=== PATIENT | female | born 1965 | race Two or more races ===

== ENCOUNTER 2018-12-07 19:43 | Emergency (ER) | payer OTHER ==
[2018-12-07] MEDS ORDERED: ASPIRIN 81 MG CHEWABLE TABLETS PO ONE (20:06)
--- NOTE | 2018-12-07 20:06 | PDOC ---
Rapid Medical Evaluation Chief Complaint: Chest Pain Time Seen by Provider: 12/07/18 20:05 Medical Evaluation: 12/07/18 20:05 I have performed a brief in-person evaluation of this patient. The patient presents with a chief complaint of: chest pain since yesterday Pertinent physical exam findings:NAD I have ordered the following:Cardiac work up The patient will proceed to the ED for further evaluation. Discharge Disposition - Diagnosis Chest pain - Referrals - Patient Instructions - Post Discharge Activity
[2018-12-07 20:09] VITALS: BMI 24.6
[2018-12-07] MEDS ORDERED: ASPIRIN 81 MG CHEWABLE TABLETS ONE (20:26)
[2018-12-07 20:48] LABS: BASO % 0.2 % (0-2.0); EOS % 0.5 % (0-4.5); HEMATOCRIT 40.3 % (32.4-45.2); HEMOGLOBIN 14.3 GM/dL (10.7-15.3); MCH 31.8 pg (25.7-33.7); MCHC 35.6 g/dl (32.0-36.0); MEAN CELL VOLUME 89.5 fl (80-96); MEAN PLT VOLUME 8.5 fl (7.5-11.1); MONO % 8.5 % (3.8-10.2); NEUT % 80.8 % (42.8-82.8); PLATELET COUNT 188 K/MM3 (134-434); RDW 12.8 % (11.6-15.6); WHITE BLOOD COUNT 5.5 K/mm3 (4.0-10.0)
[2018-12-07 21:02] LABS: INR 1.19 (0.83-1.09); PROTHROMBIN TIME (PATIENT) 14.1 SEC (9.7-13.0)
[2018-12-07] MEDS ORDERED: ACETAMINOPHEN 1000 MG/100 ML VIAL (NON FORMULARY) IVPB ONE (21:20)
[2018-12-07] MEDS ORDERED: ACETAMINOPHEN INJECTION 100 ML IVPB ONE (21:36)
--- NOTE | 2018-12-07 21:55 | PDOC ---
History of Present Illness - General Chief Complaint: Chest Pain Stated Complaint: CHEST PAINS Time Seen by Provider: 12/07/18 20:05 History Source: Patient Exam Limitations: Language Barrier - History of Present Illness Initial Comments: 12/07/18 21:50 Pt is a 53yo F with no significant PMH presenting to ED with complaints of chest pain, cough, and congestion x 1 day. Pt states that yesterday morning she stared to have a sharp chest pain on the left side under the breast and then later that evening she stared to develop cough productive of yellow spututm and congestion. She had similar symptoms earlier last month but the chest pain developed after the cough. She was placed on a Zpack. Pt endorses chills and headache. Denies fever, changes in vision, sore throat, earache, changes in vision, abdominal pain, n/v/d, numbness/tingling, sick contacts, recent travel. PMD: [place] PMH: see hpi PSH: hernia repair Meds: none Allergies: nkda Social: denies Past History - Past Medical History Allergies/Adverse Reactions: Allergies Allergy/AdvReac Type Severity Reaction Status Date / Time No Known Allergies Allergy Verified 12/07/18 20:09 Home Medications: Ambulatory Orders Albuterol Sulfate Inhaler - [Ventolin HFA Inhaler -] 1 - 2 inh PO Q4H #1 inhaler 12/07/18 Benzonatate [Tessalon Pearls -] 100 mg PO TID #21 capsule 12/07/18 COPD: No - Suicide/Smoking/Psychosocial Hx Smoking History: Never smoked Have you smoked in the past 12 months: No Information on smoking cessation initiated: No Hx Alcohol Use: No Drug/Substance Use Hx: No Review of Systems - Review of Systems Constitutional: No: Chills, Fever HEENTM: Yes: See HPI Respiratory: Yes: See HPI Cardiac (ROS): Yes: See HPI ABD/GI: No: Symptoms Reported : No: Symptoms Reported Musculoskeletal: No: Symptoms Reported Integumentary: No: Symptoms Reported Neurological: Yes: See HPI, Headache *Physical Exam - Vital Signs Last Vital Signs Temp Pulse Resp BP Pulse Ox 99.3 F 100 H 17 118/58 L 100 12/07/18 20:04 12/07/18 20:04 12/07/18 20:04 12/07/18 20:04 12/07/18 20:04 - Physical Exam General Appearance: Yes: Nourished, Appropriately Dressed. No: Apparent Distress HEENT: positive: EOMI, JAMAAL Neck: positive: Trachea midline, Supple. negative: Lymphadenopathy (R), Lymphadenopathy (L) Respiratory/Chest: positive: Lungs Clear, Normal Breath Sounds. negative: Chest Tender, Crackles, Rhonchi, Wheezing, Plerual Rub Cardiovascular: positive: Regular Rhythm, Regular Rate, S1, S2. negative: Murmur Vascular Pulses: Carotid (R): 2+, Carotid (L): 2+, Dorsalis-Pedis (R): 2+, Doralis-Pedis (L): 2+ Gastrointestinal/Abdominal: positive: Normal Bowel Sounds, Soft. negative: Tender Musculoskeletal: negative: CVA Tenderness Extremity: positive: Normal Capillary Refill. 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 intact, Fully Oriented, Alert, Normal Mood/ Affect, Normal Response, Motor Strength 5/5 Moderate Sedation - Procedure Monitoring Vital Signs: Procedure Monitoring Vital Signs Temperature 99.3 F 12/07/18 20:04 Pulse Rate 100 H 12/07/18 20:04 Respiratory Rate 17 12/07/18 20:04 Blood Pressure 118/58 L 12/07/18 20:04 O2 Sat by Pulse Oximetry (%) 100 12/07/18 20:04 ED Treatment Course - LABORATORY CBC & Chemistry Diagram: 12/07/18 20:21 12/07/18 21:19 - ADDITIONAL ORDERS Additional order review: Laboratory Results 12/07/18 12/07/18 20:21 20:21 PT with INR 14.10 H INR 1.19 H Sodium Cancelled Potassium Cancelled Chloride Cancelled Carbon Dioxide Cancelled Anion Gap Cancelled BUN Cancelled Creatinine Cancelled Creat Clearance w eGFR Cancelled Random Glucose Cancelled Calcium Cancelled Magnesium Cancelled Total Bilirubin Cancelled AST Cancelled ALT Cancelled Alkaline Phosphatase Cancelled Creatine Kinase Cancelled Troponin I Cancelled Total Protein Cancelled Albumin Cancelled 12/07/18 20:21 RBC 4.50 MCV 89.5 MCHC 35.6 RDW 12.8 MPV 8.5 Neutrophils % 80.8 Lymphocytes % 10.0 Monocytes % 8.5 Eosinophils % 0.5 Basophils % 0.2 - Medications Given in the ED: ED Medications Discontinued Medications Generic Name Dose Route Start Last Admin Trade Name Mireille PRN Reason Stop Dose Admin Acetaminophen 1,000 mg 12/07/18 21:20 12/07/18 21:40 Ofirmev Injection - IVPB 12/07/18 21:21 1,000 mg ONCE ONE Administration Aspirin 162 mg 12/07/18 20:06 12/07/18 20:33 Asa - PO 12/07/18 20:07 162 mg ONCE ONE Administration Medical Decision Making - Medical Decision Making 12/07/18 21:53 Pt is a 53yo F with no significant PMH presenting to ED with complaints of chest pain, cough, and congestion x 1 day. Pt states that yesterday morning she stared to have a sharp chest pain on the left side under the breast and then later that evening she stared to develop cough productive of yellow spututm and congestion. She had similar symptoms earlier last month but the chest pain developed after the cough. She was placed on a Zpack. Pt endorses chills and headache. Denies fever, changes in vision, sore throat, earache, changes in vision, abdominal pain, n/v/d, numbness/tingling, sick contacts, recent travel. Vitals: 100hr PE: lungs CTA, normal heart sounds, no friction rub ddx includes but not limited to pna, ptx, carditis, acs, dissection most likely viral uri. labs,ekg, cxr asa, tylenol reassess labs wnl. ekg normal cxr normal pt feelin better, can be dc home with pmd f/u. given return precautions *DC/Admit/Observation/Transfer Diagnosis at time of Disposition: Cough, Viral URI Chest pain Qualifiers: Chest pain type: unspecified Qualified Code(s): R07.9 - Chest pain, unspecified - Discharge Dispostion Disposition: HOME Condition at time of disposition: Good Decision to Admit order: No - Prescriptions Prescriptions: Albuterol Sulfate Inhaler - [Ventolin HFA Inhaler -] 1 - 2 inh PO Q4H #1 inhaler Benzonatate [Tessalon Pearls -] 100 mg PO TID #21 capsule - Referrals Referrals: Huyen Cortes MD [Primary Care Provider] - - Patient Instructions Printed Discharge Instructions: DI for Viral Upper Respiratory Infection -- Adult Additional Instructions: You were seen in the emergency room today because you were having chest pain with cough and congestion. The xray does not show pneumonia and the blood work is normal. You most likely have a viral infection. Keep yourself well hydrated. You can take Tylenol or ibuprofen for pain as needed. Two prescriptions were sent to your pharmacy. One is for cough and one is an inhaler to help you breathe. Please take as directed. Make sure you make an appointment with your doctor next week. Come back to the emergency room if pain gets worse, you have a hard time breathing, you develop fevers, cough gets worse or if any new concerning symptom develops. Thank you Print Language: CITIZEN OF [place] - Post Discharge Activity Forms/Work/School Notes: Back to Work
[2018-12-07 22:07] LABS: ALK PHOS 101 U/L (45-117); ANION GAP 9 MMOL/L (8-16); BILIRUBIN,TOTAL 0.4 mg/dL (0.2-1); BLOOD UREA NITROGEN 11 mg/dL (7-18); CALCIUM 8.2 mg/dL (8.5-10.1); CHLORIDE 105 mmol/L (98-107); CO2 23 mmol/L (21-32); CREATININE 0.5 mg/dL (0.55-1.3); GLUCOSE,RANDOM 89 mg/dL (74-106); POTASSIUM 3.4 mmol/L (3.5-5.1); SGOT/AST 37 U/L (15-37); SGPT/ALT 51 U/L (13-61); SODIUM 137 mmol/L (136-145); TOT PROT 7.2 g/dl (6.4-8.2)
--- NOTE | 2018-12-07 22:16 | PDOC ---
Attending Attestation - HPI HPI: 12/07/18 22:19 The patient is a 53 year old female, with no significant PMH, who presents to the emergency department with 1 day of productive cough with yellow sputum and congestion. The patient also endorses chest pain secondary to coughing, chills and headache. The patient states she had similar symptoms last month where chest pain developed after a cough. The patient reports she was placed on Zithromax antibiotics at that time with relief of her symptoms. The patient denies palpitations, shortness of breath and dizziness. Denies fever, nausea, vomit, diarrhea and constipation. Denies dysuria, frequency, urgency and hematuria. Allergies: NKA Documentation prepared by Prosper Cervantes, acting as medical pathologist for Chun Lee MD. - Physicial Exam PE: 12/07/18 22:19 GENERAL: Awake, alert, and fully oriented, in no acute distress HEAD: No signs of trauma EYES: PERRLA, EOMI, sclera anicteric, conjunctiva clear ENT: Auricles normal inspection, hearing grossly normal, nares patent. Moist mucosa NECK: Normal ROM, supple, no JVD. LUNGS: Breath sounds equal, clear to auscultation bilaterally. No wheezes, and no crackles HEART: Regular rate and rhythm, normal S1 and S2, no murmurs, rubs or gallops ABDOMEN: Soft, nontender. No guarding, no rebound. No masses EXTREMITIES: Normal range of motion, no edema. No clubbing or cyanosis. No cords, erythema, or tenderness NEUROLOGICAL: Cranial nerves II through XII intact. Normal speech. SKIN: Warm, Dry, normal turgor, no rashes or lesions noted. <Prosper Cervantes - Last Filed: 12/07/18 22:19> - Resident Resident Name: Leslie Gutierrez - ED Attending Attestation I have performed the following: I have examined & evaluated the patient, The case was reviewed & discussed with the resident, I agree w/resident's findings & plan, Exceptions are as noted - Medical Decision Making 12/07/18 22:07 A portion of this note was documented by scribe services under my direction. I have reviewed the details of the note, within reason, and agree with the documentation with the following case summary and management plan written by me. Patient treated in the ED. Nursing notes are reviewed and incorporated into the medical decision-making. Vital signs reviewed. Peripheral IV access obtained by the nurse, laboratory studies are drawn and sent, reviewed and interpreted by myself. Vital Signs Temp Pulse Resp BP Pulse Ox 99.3 F 100 H 17 118/58 L 100 12/07/18 20:04 12/07/18 20:04 12/07/18 20:04 12/07/18 20:04 12/07/18 20:04 53-year-old female with no past medical history presents with persistent cough for nearly one month. The patient reported 1 month ago of developing upper respiratory like infections with yellowish productive cough. Patient was prescribed azithromycin in early November which improves the symptoms. However, the patient subsequent a became ill again with similar symptoms. Denies fevers or chills or reports persistent coughing. Develops chest pain with coughing only. Not exertional. Denies shortness of breath. I suspect patient likely had 2 subsequent viral upper respirator infections. The patient is nontoxic appearing and breathing comfortably. Checks x-ray reviewed by me, pending official radiology read with no demonstrate of infiltrates. Labs to evaluate for elevated WBC. Supportive care. The workup is negative, the patient can be discharged with supportive care. I discussed the physical exam findings, ancillary test results and final diagnoses with the patient. I answered all of the patient's questions. The patient was satisfied with the care received and felt comfortable with the discharge plan and treatment plan. The patient will call their primary care physician within 24 hours to arrange follow-up and will return to the Emergency Department with any new, persistant or worsening symptoms. <Chun Lee - Last Filed: 12/07/18 22:47> Heart Score/ECG Review #1 ECG reviewed & interpreted by me at: 20:00 12/07/18 22:47 NSR 99, no std/christina, normal axis, normal intervals, QTC 418 msec <Chun Lee - Last Filed: 12/07/18 22:47>
[2018-12-07 23:19] VITALS: BP 110/78; PULSE 88; TEMP 98.5
--- NOTE | 2018-12-10 11:00 | EKG ---
Test Reason : Blood Pressure : / mmHG Vent. Rate : 099 BPM Atrial Rate : 099 BPM P-R Int : 142 ms QRS Dur : 076 ms QT Int : 326 ms P-R-T Axes : 050 033 039 degrees QTc Int : 418 ms NORMAL SINUS RHYTHM POSSIBLE LEFT ATRIAL ENLARGEMENT BORDERLINE ECG WHEN COMPARED WITH ECG OF 21-MAR-2009 08:53, NO SIGNIFICANT CHANGE WAS FOUND Confirmed by IDLLON ROBERTS MD ([id number]) on 12/10/2018 11:00:30 AM Referred By: Confirmed By:DILLON ROBERTS MD
== END 2018-12-07 23:41 | disposition home or self-care (01) ==
LOC: JER 19:43
PROC: 3E033NZ Introduction of Analgesics, Hypnotics, Sedatives into Peripheral Vein, Percutaneous Approach (ICD-10-PCS; principal; 2018-12-07)
DX: J06.9 Acute upper respiratory infection, unspecified (principal); B97.89 Other viral agents as the cause of diseases classified elsewhere
CPT/HCPCS: 36415; 71046-TC-FY; 80053; 84484; 85025; 85610; 93005; 93010; 96374; 99284-25; J0131